=== PATIENT | female | born 1985 | race African-American/Black ===

== ENCOUNTER 2019-08-28 11:14 | Emergency (ER) | payer SELFPAY ==
[~2019-08-28] VITALS: Ht 157.5 cm; Wt 52.0 kg
[2019-08-28] MEDS ORDERED: IBUPROFEN (11:25)
[2019-08-28] MEDS ORDERED: KETOROLAC 60MG/2ML VIAL IM ONE (13:30)
[2019-08-28 13:39] VITALS: BP 118/74
== END 2019-08-28 13:59 | disposition home or self-care (01) ==
LOC: ER 11:14
DX: M54.31 Sciatica, right side (principal); M19.90 Unspecified osteoarthritis, unspecified site
CPT/HCPCS: 96372; 99283; J1885